=== PATIENT | male | born 1955 | race Two or more races ===

== ENCOUNTER 2023-02-28 23:02 | Emergency (ER) | payer OTHER ==
[~2023-02-28] VITALS: Ht 162.6 cm; Wt 61.2 kg
[2023-03-01] MEDS ORDERED: NORFLEX100MG PO (05:10)
[2023-03-01] MEDS ORDERED: KETO10TA2 PO (05:10)
== END 2023-03-01 05:30 ==
LOC: ER 23:03
DX: M54.9 Dorsalgia, unspecified (principal)
CPT/HCPCS: 72100; 74240; 96372; 99284; J1885